=== PATIENT | male | born 1925 | race Caucasian/White ===

== ENCOUNTER 2016-12-03 15:00 | Inpatient (IN) | payer MEDICARE, BC ==
[~2016-12-03] VITALS: Ht 170.2 cm; Wt 68.0 kg
--- NOTE | 2016-12-03 13:55 | NUR ---
Full telephone SBAR report received by GRAZYNA Wang from [facility].
--- NOTE | 2016-12-03 14:20 | NUR ---
Pt received from [place] [facility] via ambulance with continuous bladder irrigation. Pt c/o of 10/ bladder/hematuria pain. MD called and made aware of pt's new admission orders.
[2016-12-03 16:00] VITALS: BP 135/79
[2016-12-03] MEDS ORDERED: VENL150C2 PO (16:02)
[2016-12-03] MEDS ORDERED: TAMS-3 PO (16:02)
[2016-12-03] MEDS ORDERED: MAG355OR18 PO (16:08)
[2016-12-03] MEDS ORDERED: MULT1TAB73 PO (16:08)
[2016-12-03] MEDS ORDERED: FINA5TAB3 PO (16:08)
[2016-12-03] MEDS ORDERED: ATOR10TA PO (16:08)
[2016-12-03] MEDS ORDERED: CHOL100045 PO (16:08)
--- NOTE | 2016-12-03 19:18 | NUR ---
Dr. Zamora here to see pt at the bedside.
--- NOTE | 2016-12-03 19:30 | NUR ---
Dr. Vamshi Zamora at bedside assessing pt. explained planned procedure and pt expresses adequate understanding.
--- NOTE | 2016-12-03 19:35 | NUR ---
Current crandall cath Fr. 18 DC'd by ; Lidocaine 2% urojet given by and new Crandall Fr. 20 placed. did manual irrigations and noted some blood clots.
[2016-12-03 20:00] VITALS: BP 115/72
--- NOTE | 2016-12-03 20:00 | NUR ---
Pt alert, [place] and wears bilateral hearing aids. Bedside procedure with Dr. Zamora well tolerated. spoke with pt's and son. Pt remains on continuous bladder irrigation.
--- NOTE | 2016-12-03 20:45 | NUR ---
Seen and evaluated by Dr. Sheridna; also spoke to family. was allowed to be with pt at bedside after signing the hospital visitor extended stay agreement. All plans of care and procedures constantly being explained to pt and .
[2016-12-03 21:00] VITALS: BP 113/67
[2016-12-03 22:00] VITALS: BP 123/72
[2016-12-03 23:59] VITALS: BP 135/61
[2016-12-04] VITALS (7 sets, daily range): BP systolic 102–138; BP diastolic 52–78
--- NOTE | 2016-12-04 00:01 | NUR ---
Needed to manually irrigate 3-way crandall periodically to maintain patency.
--- NOTE | 2016-12-04 00:30 | NUR ---
Noted pt more restless and forgetful with attempts to get up to void. Reality-orientation done and fall/safety precautions observed at all times. Frequently instructed not to touch crandall cath. Noted IV infiltrated and explained need to insert new IV site.
--- NOTE | 2016-12-04 00:40 | NUR ---
During IV insertion, pt's at bedside woke up and became upset, agitated and refusing any procedure done on pt; also demanding to speak to a doctor to verify if nurses are allowed to insert IV. Simple clear explanations done without success. RN Air Ant[employer] Officer made aware of incident.
--- NOTE | 2016-12-04 00:45 | NUR ---
RN Sales Force Administrator to bedside, spoke to pt's and also to son over the phone. After sometime, returned to bedside and appeared calmer. All procedures and rationale frequently explained to pt and .
--- NOTE | 2016-12-04 06:00 | NUR ---
Continues on bladder irrigation, NS irrigant rate adjusted frequently to keep urine light pink per MD order. PRN manual NS bladder irrigation done at periodic intervals for crandall patency; few blood clots noted. Son came to visit, pt's sent home. Please see STEPH/CCU flowsheet for trends and clinical data.
[2016-12-04 07:23] LABS: IRON, SERUM 34 ug/dL (50-175)
--- NOTE | 2016-12-04 07:30 | NUR ---
RECIEVED LYING IN BED SOUND ASLEEP. APPEARS COMFORTABLE. COLOR IS GOOD. SR NO ECTOPY. VSS. CONTINOUS BLADDER IRRIGATION IS IN PROGRESS., URINE OUTPUT IS SLIGHTLY PINKISH AND CLEAR., NO BLOOD CLOTS NOTED.
[2016-12-04 07:39] LABS: ALANINE AMINOTRANSFERASE 19 U/L (16-63); ALKALINE PHOSPHATASE 59 U/L (50-136); ASPARTATE AMINOTRANSFERASE 25 U/L (15-37); BILIRUBIN,TOTAL 0.5 mg/dL (0.2-1.0); CARBON DIOXIDE 28 mmol/L (21-32); CHLORIDE 103 mmol/L (98-107); CHOLESTEROL 132 mg/dL (<200); CREATININE 0.9 mg/dL (0.6-1.3); GLUCOSE 126 mg/dL (74-106); HDL CHOLESTEROL 83 mg/dL (40-60); MAGNESIUM 1.8 mg/dL (1.8-2.4); PHOSPHOROUS 3.3 mg/dL (2.5-4.9); TOTAL PROTEIN, SERUM 6.5 g/dL (6.4-8.2); TRIGLYCERIDES 71 MG/DL (30-150); UREA NITROGEN, BLOOD 14 mg/dL (7-18)
--- NOTE | 2016-12-04 08:00 | NUR ---
PT IS AROUSABLE AND FOLLOWS COMMANDS. DENIES ANY C/O BLADDER PAIN. MOVES ALL EXTREMETIES WELL. MAIN IVF IS D5 1/2 NS AT 70ML/HR INFUSING WELL. PT IS KEPT NPO FOR NOW.
--- NOTE | 2016-12-04 08:05 | NUR ---
DR PAGAN CALLED WITH A NEW ORDER TO STOP BLADDER IRRIGATION FOR NOW AND OBSERVE IFURINE FLOW IS BECOMING BLOODY.
--- NOTE | 2016-12-04 08:06 | NUR ---
BLADDER IRRIGATION IS STOPPED ORDERED TO OBSERVE FOR BLEEDING AGAIN.
[2016-12-04 08:22] LABS: WHITE BLOOD COUNT (AUTO) 8.5 K/UL (4.0-11.2)
[2016-12-04 08:23] LABS: BASOPHILS % (AUTO) 0.4 % (0.0-2.0); EOSINOPHILS % (AUTO) 0.1 % (0.0-7.0); HEMATOCRIT 28.3 % (40-50); HEMOGLOBIN 9.6 G/DL (14.0-18.0); LYMPHOCYTES % (AUTO) 23.1 % (20.5-51.5); MEAN CORPUSCULAR HEMOGLOBIN 32.2 UUG (27.0-31.0); MEAN CORPUSCULAR HGB CONC 34 g/dL (32.0-37.0); MEAN CORPUSCULAR VOLUME 94.6 FL (82.0-92.0); MONOCYTES % (AUTO) 11.7 % (0.0-11.0); NEUTROPHILS % (AUTO) 64.7 % (38.5-71.5); PLATELET COUNT (AUTO) 199 K/UL (150-450); RED BLOOD CELL COUNT(AUTO) 2.99 MIL/UL (4.7-6.1)
[2016-12-04 08:24] LABS: NEUTROPHILS # (AUTO) 5.5 K/UL (1.8-8.9)
--- NOTE | 2016-12-04 09:00 | NUR ---
URINE OUTPUT STARTING TO TURN MORE BLOODY WITH BLOOD CLOTS. CLAAED UP DR CEE AND IFORMED HIM OF THE BLEEDING. RESUME BLADDER IRRIGATION ON A SLOWER DRIPS. DR CEE SPOKE WITH THE SON AND SCHEDULE FOR CYSTOSCOPY.
[2016-12-04 09:01] LABS: THYROID STIMULATING HORMONE 2.091 mIU/mL (0.358-3.740)
--- NOTE | 2016-12-04 11:50 | NUR ---
CONSENT SIGNED FOR ENDOSCOPY. PRO-OP CHECKLIST DONE. PT BROUGHT DOWN TO SURGERY VIA GOURNEY..CONDITION IS STABLE. SON WENT DOWN WITH THE PATIENT.
--- NOTE | 2016-12-04 14:15 | NUR ---
PT IS BACK FROM RECOVERY ROOM VIA BED. AWAKE AND ORIENTED X3. NO C/O PAIN AT THIS TIME. BLADDER IRRIGATION IS IN PROGRESS AND URINE OUTPUT IS SLIGHTLY PINKISH IN COLOR. FAMILY AT THE BEDSIDE. PT ATE TURKEY SANDWICH AND TOLERATED WELl.
--- NOTE | 2016-12-04 17:00 | NUR ---
PT IS RESTLESS , MEDICATED WITH DILAUDID 0.5MG SLOW IVP AND PT ABLE TO SLEEP.
--- NOTE | 2016-12-04 18:00 | NUR ---
PT ATE DINNER AND TOLERATED WELL.
--- NOTE | 2016-12-04 20:00 | NUR ---
RECEIVED PT DROWSY BUT AROUSABLE, COHERENT & PLEASANT. DENIES PAIN. 3WAY F/C IN PLACE W/ CONT. NS IRRIGATION W/ PINKISH OUTPUT, NO BLOOD CLOTS NOTED. IVF D51/2NS @ 70CC/HR ON KIM, NO SIGNS OF INFILTRATION. C-SCOPE SR NO ECTOPY. REPOSITIONED SELF FOR COMFORTS. NOT IN ANY DISTRESS.
--- NOTE | 2016-12-04 21:00 | NUR ---
DR CEE WAS HERE & SEEN PT,
--- NOTE | 2016-12-04 23:00 | NUR ---
BLOOD CLOTS NOTED ON F/C TUBING, HAND IRRIGATED DONE .
[2016-12-05 00:07] VITALS: BP 101/56
[2016-12-05 04:00] VITALS: BP 123/76
--- NOTE | 2016-12-05 04:00 | NUR ---
PT REMAINS ASLEEP. V/S STABLE.
--- NOTE | 2016-12-05 06:00 | NUR ---
AM CARE DONE. REPOSITIONED ON HIS SIDE W/ HOB ELEVATED. DENIES PAIN
[2016-12-05 06:36] LABS: CARBON DIOXIDE 30 mmol/L (21-32); CHLORIDE 104 mmol/L (98-107); CREATININE 0.7 mg/dL (0.6-1.3); GLUCOSE 112 mg/dL (74-106); MAGNESIUM 1.7 mg/dL (1.8-2.4); PHOSPHOROUS 2.3 mg/dL (2.5-4.9); POTASSIUM 3.8 mmol/L (3.5-5.1); UREA NITROGEN, BLOOD 8 mg/dL (7-18)
[2016-12-05 06:47] LABS: BASOPHILS % (AUTO) 0.3 % (0.0-2.0); EOSINOPHILS # (AUTO) 0.1 K/uL (0.0-0.7); EOSINOPHILS % (AUTO) 0.9 % (0.0-7.0); HEMOGLOBIN 8.2 G/DL (14.0-18.0); LYMPHOCYTES # (AUTO) 1.6 K/UL (0.8-4.8); LYMPHOCYTES % (AUTO) 22.3 % (20.5-51.5); MEAN CORPUSCULAR HEMOGLOBIN 31.4 UUG (27.0-31.0); MEAN CORPUSCULAR HGB CONC 34 g/dL (32.0-37.0); MEAN CORPUSCULAR VOLUME 93.6 FL (82.0-92.0); MONOCYTES % (AUTO) 13.5 % (0.0-11.0); NEUTROPHILS # (AUTO) 4.6 K/UL (1.8-8.9); PLATELET COUNT (AUTO) 174 K/UL (150-450); WHITE BLOOD COUNT (AUTO) 7.3 K/UL (4.0-11.2)
[2016-12-05 06:55] LABS: HEMATOCRIT 24.5 % (40-50); RED BLOOD CELL COUNT(AUTO) 2.62 MIL/UL (4.7-6.1)
--- NOTE | 2016-12-05 07:45 | NUR ---
Patient on bladder irrigation light pink in color noted in crandall bag. clear through tubing.
[2016-12-05 08:00] VITALS: BP 132/71
--- NOTE | 2016-12-05 08:00 | NUR ---
Patient refusing to eat breakfast at this time.
--- NOTE | 2016-12-05 09:45 | NUR ---
Karen BLUE LINE TRIMMER in the unit to examine patient, patient updated by her on care plan. She was informed pt. refusing to eat and remains forgetful..
--- NOTE | 2016-12-05 10:20 | NUR ---
Physical therapy at bedside to work with patient.
[2016-12-05 12:00] VITALS: BP 126/67
--- NOTE | 2016-12-05 13:15 | NUR ---
Dr. Zamora at bedside assessing patient, and manually irrigated 2way crandall catheter, removing a couple of blood clots, otherwise irrigation clear through the tube light light pink in color. Patient with no c/of pain. Addendum: 12/05/16 at 1419 by HUMBERTO CRAVER RN 1320 At this time also crandall catheter removed. Patient instructed by Md to drink plenty of water. and orders to monitor urine output and call if patient unable to void past 2 hours. Addendum: 12/05/16 at 1425 by HUMBERTO CARVER RN While in the unit Dr. Zamora informed of pt's son Mr. Sal Ivey to be updated via phone. Dr. Zamora updated pt's son on the phone and informed him of the possibility to be dcd home today.
--- NOTE | 2016-12-05 13:45 | NUR ---
Marina [employer] at bedside assessing patient.
[2016-12-05] MEDS ORDERED: CIPR-262 PO (14:03)
--- NOTE | 2016-12-05 15:30 | NUR ---
Dr. Sera fatima called to be notified that patient hasn't voided yet. Orders to monitor patient for another 2 hours received. and if in two hours patient does not void, perform bladder scanner and call with results.
[2016-12-05 16:00] VITALS: BP 104/77
--- NOTE | 2016-12-05 17:10 | NUR ---
A call from Dr. Zamora received and orders for bladder scan received. orders carried out X 3 with consecutive readings of 111ml . At around 1720 Dr. Zamora called with results and orders for stat ultrasound. Addendum: 12/05/16 at 1846 by HUMBERTO CARVER RN Dr. dee of pt's 5cc output of bloody fluid.
--- NOTE | 2016-12-05 17:50 | NUR ---
Kael from US in the unit and at 1805 Dr. Zamora notified by US Unruly of results. ( 92 cc of urine and clots noted at the back of the bladder preliminary results). As stated by Dr. Zamora patient should not be discharged today. Attending physician Karen JENSEN notified. As well as pt's son Mr. Huang. And orders to monitor urine output for the next 3 hours.
[2016-12-05 20:00] VITALS: BP 112/70
--- NOTE | 2016-12-05 20:00 | NUR ---
Pt resting comfortably in bed. Awake, alert, hard of hearing. Refusing to wear bilateral hearing aids at this time; hearing device kept at bedside. Appears anxious about "ongoing problem with urination." Psychological support offered; allowed to verbalize.
--- NOTE | 2016-12-05 20:50 | NUR ---
Incontinent of large amount of pinkish urine with small amount of blood clots. Kept clean, dry and comfortable. Post void bladder scan shows no residual. Will continue to monitor closely.
--- NOTE | 2016-12-05 21:20 | NUR ---
Another bladder incontinence to moderate amount of urine. Output remains pink in color but no clots. Condom cath placed after adequate explanation in order to be accurate with I and O.
--- NOTE | 2016-12-05 22:40 | NUR ---
Dr. Panda Zamora called in; condition update given. stated from his standpoint, pt can be discharged in AM.
--- NOTE | 2016-12-06 02:00 | NUR ---
Sleeping at periodic intervals. Required pericare and linen changes frequently due to incontinence and pt tagging on condom cath/reliafit device. Kept clean, dry and comfortable at all times. Pt aware of possible discharge this AM. Verbalizes anxiety over care at home. Requested Case Management consult.
--- NOTE | 2016-12-06 03:00 | NUR ---
Refusing re-application of external cath. Noted unable to use urinal stating he forgets how. Diaper placed after explanations. Encouraged to sleep.
[2016-12-06 06:00] VITALS: BP 111/62
--- NOTE | 2016-12-06 06:30 | NUR ---
General condition unchanged. Continues to be incontinent of large amounts of pink urine with no blood clots. AM care rendered. All procedures explained to pt. Son called in twice for update, very appreciative of care. Continues to rest/sleep.
[2016-12-06 06:46] LABS: BASOPHILS # (AUTO) 0.1 K/uL (0.0-8.0); BASOPHILS % (AUTO) 1.4 % (0.0-2.0); EOSINOPHILS # (AUTO) 0.2 K/uL (0.0-0.7); EOSINOPHILS % (AUTO) 2.2 % (0.0-7.0); HEMOGLOBIN 7.7 G/DL (14.0-18.0); LYMPHOCYTES # (AUTO) 1.5 K/UL (0.8-4.8); LYMPHOCYTES % (AUTO) 20.9 % (20.5-51.5); MEAN CORPUSCULAR HEMOGLOBIN 31.5 UUG (27.0-31.0); MEAN CORPUSCULAR HGB CONC 33 g/dL (32.0-37.0); MEAN CORPUSCULAR VOLUME 94.5 FL (82.0-92.0); MONOCYTES # (AUTO) 0.8 K/UL (0.1-1.30); MONOCYTES % (AUTO) 11.1 % (0.0-11.0); NEUTROPHILS # (AUTO) 4.6 K/UL (1.8-8.9); NEUTROPHILS % (AUTO) 64.4 % (38.5-71.5); PLATELET COUNT (AUTO) 170 K/UL (150-450); WHITE BLOOD COUNT (AUTO) 7.2 K/UL (4.0-11.2)
[2016-12-06 06:56] LABS: HEMATOCRIT 23.2 % (40-50); RED BLOOD CELL COUNT(AUTO) 2.46 MIL/UL (4.7-6.1)
--- NOTE | 2016-12-06 07:30 | NUR ---
RECIEVED LYING IN BED SOUND ASLEEP. AROUSABLE TO CALL. NO APPARENT DISTRESS NOTED. COLOR IS SLIGHTLY PALE.
[2016-12-06 08:08] LABS: CARBON DIOXIDE 28 mmol/L (21-32); CHLORIDE 103 mmol/L (98-107); CREATININE 0.7 mg/dL (0.6-1.3); GLUCOSE 102 mg/dL (74-106); MAGNESIUM 1.9 mg/dL (1.8-2.4); PHOSPHOROUS 2.1 mg/dL (2.5-4.9); POTASSIUM 3.7 mmol/L (3.5-5.1); UREA NITROGEN, BLOOD 7 mg/dL (7-18)
--- NOTE | 2016-12-06 08:30 | NUR ---
PT IS AWAKE NOW. ORIENTED X3. MOVES ALL EXTREMETIES WELL. PT ON DIAPER FOR INCONTINENCE OF URINE. ASSISTED UP ON THE CHAIR FOR BREAKFAST. TOLERATED ABOUT 80%. NO C/O PAIN AT THIS TIME.
--- NOTE | 2016-12-06 09:00 | NUR ---
ASSISTED PT UP TO THE BATHROOM WITH A WALKER. GAIT IS STEADY. NO C/O DIZZINESS OR WEAKNESS. NOTIFIED ARNULFO OF LOW H&H.
--- NOTE | 2016-12-06 09:30 | NUR ---
SEEN AND EXAMINED BY ARNULFO JENSEN AND DISCHARGE ORDER DONE. FAMILY AT THE BEDSIDE.
[2016-12-06 10:00] VITALS: BP 112/70
--- NOTE | 2016-12-06 10:15 | NUR ---
PT AMBULATED WITH PT USING A WALKER. WALKED AROUND THE HALLWAY. PT IS DRIBBLING URINE, BLOODY RED WITH A VERY SMALL PIEC OF CLOTS. PT IS ANXIOUS AND SITTING UP ON THE CHAIR. HE IS HESITANT TO GO HOME. INFORMED DR CEE WITHOUT ANY ORDERS. INFORMED ARNULFO JENSEN. WILL CONTINUE TO OBSERVE THE PT UNTIL THE NEXT VOID. ENCOURAGE PT TO DRINK LOTS OF WATER.
--- NOTE | 2016-12-06 12:00 | NUR ---
PT IS VERY ANXIOUS AND NOT ABLE TO URINATE FREELY. MEDICATED WITH ATIVAN 0.5MG PO ORDERED. PT BECAME CALM.
--- NOTE | 2016-12-06 14:15 | NUR ---
ABLO TO URINATE ABOUT 300ML OF DARK TEA COLORED URINE WITH SMALL AMOUNT OF CLOTS. PT C/O TO SLIGHT PAIN IN URINATION MEDICATED WITH PYRIDIUM 200MG PO ORDERED.
--- NOTE | 2016-12-06 14:15 | NUR ---
PT ATE GOOD LUNCH. FAMILY AT THE BEDSIDE. DISCHARGE INSTRUCTION GIVEN TO PT AND WITH GOOD UNDERSTANDING. PRESCRIPTION GIVEN. VSS. DISCHARGE HOME VIA W/C ACCOMPANIED BY AND DAUGHTER. CONDITION IS STABLE.
== END 2016-12-06 14:15 | disposition home health service (06) | DRG 669 ==
LOC: CCU 15:00
PROVIDERS: ADMIT Internal Medicine; ATTEND Internal Medicine
PROC: 3E1K78Z Irrigation of Genitourinary Tract using Irrigating Substance, Via Natural or Artificial Opening (ICD-10-PCS; principal; 2016-12-03)
PROC: 0T5B8ZZ Destruction of Bladder, Via Natural or Artificial Opening Endoscopic (ICD-10-PCS; 2016-12-04)
PROC: 0TCB8ZZ Extirpation of Matter from Bladder, Via Natural or Artificial Opening Endoscopic (ICD-10-PCS; 2016-12-04)
PROC: 0T7D8DZ Dilation of Urethra with Intraluminal Device, Via Natural or Artificial Opening Endoscopic (ICD-10-PCS; 2016-12-04)
PROC: 0T5 Urinary System, Destruction (ICD-10-PCS; 2016-12-04)
DX: N30.41 Irradiation cystitis with hematuria (principal); D68.59 Other primary thrombophilia; J98.11 Atelectasis; R33.9 Retention of urine, unspecified; Y84.2 Radiological procedure and radiotherapy as the cause of abnormal reaction of the patient, or of later complication, without mention of misadventure at the time of the procedure; Y78.1 Therapeutic (nonsurgical) and rehabilitative radiological devices associated with adverse incidents; Y92.89 Other specified places as the place of occurrence of the external cause; Z87.891 Personal history of nicotine dependence; Z85.46 Personal history of malignant neoplasm of prostate; I71.4 Abdominal aortic aneurysm, without rupture; E78.5 Hyperlipidemia, unspecified; N20.0 Calculus of kidney; Z74.09 Other reduced mobility; E87.6 Hypokalemia; Z79.899 Other long term (current) drug therapy
CPT/HCPCS: 36415; 51798; 71010; 83550; 83735; 84100; 84153; 84443; 85025; 86301; 93005; 93307; 97110; 97116; 97530; C1758; J0690; J1170; J1956; J2250; J2370; J2405; J3010; J3490; J7030